=== PATIENT | female | born 2000 | race Caucasian/White ===

== ENCOUNTER → 2021-06-01 10:31 | Outpatient (BNVA) | payer MEDICAID, SELFPAY | PROVIDERS: Visit Provider Nurse Practitioner Family | DX: Z20.822 Contact with and (suspected) exposure to COVID-19 (principal) | CPT/HCPCS: 87635 ==

== ENCOUNTER 2024-09-18 02:19 | Emergency (ER) | payer SELFPAY ==
[2024-09-18 02:36] VITALS: BP 134/87; PULSE 98; RESP 18; TEMP 37.2; O2SAT 100; BMI 23.9
--- NOTE | 2024-09-18 02:52 | W.ED.BACK ---
HPI - Back Pain/Injury General: Chief Complaint: Back Pain/Injury Stated Complaint: Neck and Back Pain Time Seen by Provider: 09/18/24 02:38 History of Present Illness: Patient has had some stiffness in her neck pain in her head and neck and shoulders for the last few days. No focal motor deficits. No nuchal rigidity. No fevers. Related Data Previous Rx's Medication Instructions Recorded cyclobenzaprine 10 mg tablet 10 mg PO Q8H PRN muscle spasm #20 09/18/24 tabs dexamethasone 6 mg tablet 6 mg PO DAILY 5 days #5 tabs 09/18/24 diclofenac sodium 50 mg 50 mg PO BID PRN pain #14 tabs 09/18/24 tablet,delayed release Allergies Allergy/AdvReac Type Severity Reaction Status Date / Time No Known Allergies Allergy Verified 06/01/21 08:15 Review of Systems Narrative: Constitutional symptoms: Negative except as documented in HPI. Skin symptoms: Negative except as documented in HPI. Eye symptoms: Negative except as documented in HPI. ENMT symptoms: Negative except as documented in HPI. Respiratory symptoms: Negative except as documented in HPI. Cardiovascular symptoms: Negative except as documented in HPI. Gastrointestinal symptoms: Negative except as documented in HPI. Genitourinary symptoms: Negative except as documented in HPI. Musculoskeletal symptoms: Negative except as documented in HPI. Neurologic symptoms: Negative except as documented in HPI. Psychiatric symptoms: Negative except as documented in HPI. Endocrine symptoms: Negative except as documented in HPI. [facility] ED PFSH: Social History (Updated 06/01/21 @ 08:15 by Lynn Thomas NP) Smoking and tobacco/nicotine status: never used tobacco/nicotine Alcohol intake: never Female Reproductive History: Date of last menstrual period: 09/11/24 Physical Exam Narrative: EXAM NARRATIVE: General: Alert, no acute distress. Skin: warm and dry Head: Normocephalic Neck: Trachea midline, some mild paraspinal muscle tenderness in the neck and base of her skull. No bony tenderness. No nuchal rigidity. Eye: Extraocular movements are intact. Ears, nose, mouth and throat: Oral mucosa moist Respiratory: Respirations are non-labored Musculoskeletal: Normal ROM Neurological: Alert and oriented, No focal neurological deficit observed. Psychiatric: Cooperative, appropriate mood & affect. Course Vital Signs: Vital signs: Vital Signs Temperature 98.9 F 09/18/24 02:36 Pulse Rate 98 09/18/24 02:36 Respiratory Rate 18 09/18/24 02:36 Blood Pressure 134/87 09/18/24 02:36 Pulse Oximetry 100 09/18/24 02:36 Oxygen Delivery Me thod Room Air 09/18/24 02:36 MDM - Back Pain/Injury Medical Decision Making Assessment and plan: Neck pain ?Toradol, Decadron and Norflex in the emergency room - Discharged home - Discussed plan with patient. Answered any questions. - Evaluation and treatment of this problem were appropriate in the emergency setting. No radiology studies performed this visit Discharge Plan Discharge Patient Disposition: Home Clinical Impression: Acute neck pain Condition: Stable Prescriptions: New cyclobenzaprine 10 mg tablet 10 mg PO Q8H PRN (Reason: muscle spasm) Qty: 20 0RF dexamethasone 6 mg tablet 6 mg PO DAILY 5 Days Qty: 5 0RF diclofenac sodium 50 mg tablet,delayed release (DR/EC) 50 mg PO BID PRN (Reason: pain) Qty: 14 0RF Discharge Orders: Discharge ED (Routine); Ordered 09/18/24 Ordered By: Halie Killian Discharge Diet: Usual diet Discharge Activity: Increase activity as tolerated Patient Instructions: Opioid Safety, Pain Management Activity Restrictions/Additional Instructions: Thank you for choosing [facility] for your healthcare needs today. Please realize this is an emergency room and that we are providing you with a medical screening exam and this may not be complete and all inclusive of all the testing and or work up that you may need to determine your ailment or severity of your illness. You have been screened and evaluated and felt safe for discharge. Health conditions do change or evolve sometimes and as such it is important that you follow up with your Primary Doctor to be re checked, 3-5 days is a general good time frame for follow up. 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
[2024-09-18] MEDS: dexamethasone 10 mg/mL INJ IM (02:57)
[2024-09-18] MEDS: orphenadrine 30 mg/mL Inj 2 mL 60 MG IM (02:59)
[2024-09-18] MEDS: ketorolac 60 mg/2 mL INJ IM (03:04)
[2024-09-18 03:34] VITALS: BP 120/84; PULSE 99; O2SAT 99
== END 2024-09-18 03:30 | disposition home or self-care (01) ==
PROVIDERS: Emergency Provider Emergency Medicine
DX: M54.2 Cervicalgia (principal)
CPT/HCPCS: 96372; 99284; J1100; J1885; J2360

== ENCOUNTER 2024-09-23 17:57 | Emergency (ER) | payer SELFPAY ==
[2024-09-23 17:59] VITALS: BP 128/81; PULSE 103; TEMP 36.5; O2SAT 96; BMI 23.9
--- NOTE | 2024-09-23 18:32 | CTR_ITS ---
PROCEDURE INFORMATION: Exam: CT Neck With Contrast Exam date and time: 09/23/2024 6:55 PM Age: 24 years old Clinical indication: Neck pain; Additional info: Severe left neck pain and swelling TECHNIQUE: Imaging protocol: Computed tomography of the neck with contrast. Radiation optimization: All CT scans at this facility use at least one of these dose optimization techniques: automated exposure control; mA and/or kV adjustment per patient size (includes targeted exams where dose is matched to clinical indication); or iterative reconstruction. Contrast material: OMNIPAQUE 350; Contrast volume: 100 ml; Contrast route: INTRAVENOUS (IV); COMPARISON: No relevant prior studies available. RADIATION DOSE METRICS: Total DLP (mGy-cm): 259.12 FINDINGS: Paranasal sinuses: Mucous retention cyst in the right maxillary sinus. No air-fluid levels. Salivary glands: Normal. Glands are normal in size. Pharynx: Unremarkable. No significant tonsillar enlargement. Prevertebral and retropharyngeal spaces: Unremarkable. Larynx: Unremarkable. Epiglottis is normal. Thyroid: Normal. No enlarged or calcified nodules. Trachea: Visualized trachea is unremarkable. Lungs: Unremarkable as visualized. Lymph nodes: Unremarkable. No lymphadenopathy. Bones/joints: Unremarkable. No acute fracture. Soft tissues: Unremarkable. No significant soft tissue swelling. CT/CT neck w con* [id number] IMPRESSION: No acute findings.
--- NOTE | 2024-09-23 18:33 | ED_ITS ---
HPI - Back Pain/Injury 2 General: Chief Complaint: Back Pain/Injury Stated Complaint: upper back pain and neck Time Seen by Provider: 09/23/24 18:09 Source: patient Mode of arrival: ambulatory Limitations: no limitations History of Present Illness: Patient is a 24-year-old female who presents the emergency department complaining of worsening left neck pain going on 2 weeks now. Patient states was seen here on 09/18. I did review this note, she had unremarkable physical exam other than some reproducible left paracervical tenderness to palpation, was treated with Norflex, Decadron, and Toradol here in the emergency department and sent home with prescriptions. Patient states she only gets relief minimally from the muscle relaxer, but today it is the worst it has ever been. Currently rating it an 8/10, worse with movement but she can also feel it at rest. Other than the worsening of pain, she has no new symptoms to report. This includes no trouble swallowing, painful swallowing, fevers, recent illness, spinous process tenderness, or other symptoms. She does note that it radiates towards her left jaw and to left shoulder. Denies any recent trauma. 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 Afebrile at this time, vitals unremarkable. MD elicited complaint: other (Left neck pain) Onset (ago): week(s) Timing: constant and progressively worsening Severity: severe Pain scale (0-10): 8 Similar Symptoms Previously: Yes Quality: other (Pressure/spasm) Associated symptoms: Deny abdominal pain, chills, fever(s), nausea or vomiting Related Data Previous Rx's Medication Instructions Recorded cyclobenzaprine 10 mg tablet 10 mg PO Q8H PRN muscle spasm #20 09/18/24 tabs diclofenac sodium 50 mg 50 mg PO BID PRN pain #14 tabs 09/18/24 tablet,delayed release Allergies Allergy/AdvReac Type Severity Reaction Status Date / Time No Known Allergies Allergy Verified 09/23/24 18:04 Review of Systems 2 General: Reports: 10 or more systems reviewed and unremarkable except in HPI and below Const: Denies: fever(s) or chills Card: Denies: chest pain Resp: Denies: dyspnea or productive cough GI: Denies: abdominal pain, nausea, vomiting or diarrhea : Denies: flank pain Musc: Reports: neck pain and back pain (Upper left/posterior shoulder region); Denies: extremity pain, extremity swelling, joint pain, joint swelling, joint redness, joint warmth, limited range of motion or muscle weakness Skin/Breast: Denies: rash Neuro: Denies: headache(s), numbness in extremities or weakness in extremities PFSH ED 2 PFSH: Social History Smoking and tobacco/nicotine status: never used tobacco/nicotine Alcohol intake: never Physical Exam 2 Const: COMMON NORMALS: no acute distress, patient oriented x3, no limitations, healthy appearing, alert and well nourished HENMT: COMMON NORMALS: normocephalic, atraumatic, moist oral mucous membranes and oropharynx normal HEAD & SCALP: normocephalic and atraumatic Neck/C-Spine: COMMON NORMALS: full ROM, no lymphadenopathy, supple, no meningeal signs and Thyroid normal GENERAL: Yes normal visual inspection T HYROID: Thyroid normal OTHER: No significant reproducible tenderness to palpation to the left paracervical region, no obvious swelling of this area. No cervical spinous process tenderness Resp: COMMON NORMALS: normal respiratory effort, No use of accessory muscles and clear to auscultation bilaterally AUSCULTATION: clear to auscultation bilaterally Cardio: COMMON NORMALS: regular rate and regular rhythm RATE: regular rate RHYTHM: regular rhythm Back/Pelvis: COMMON NORMALS: no thoracic nor lumbar tenderness and thoraco- lumbar ROM normal Extremity: COMMON NORMALS: normal to inspection, full ROM, capillary refill normal, no joint enlargement and no clubbing, cyanosis or edema NARRATIVE EXTREMITY EXAM: No reproducible pain with range of motion of the left upper extremity Neuro: COMMON NORMALS: patient oriented x3, moves all extremities, no focal motor deficits and no sensory deficits noted SENSORIUM/ORIENTATION: Yes alert MENINGEAL SIGNS: Yes no meningeal signs Skin: COMMON NORMALS: no rashes or lesions noted GENERAL SKIN EXAM: no rashes or lesions noted Course 2 Vital Signs: Vital signs: Vital Signs Temperature 97.7 F 09/23/24 17:59 Pulse Rate 103 H 09/23/24 17:59 Blood Pressure 128/81 09/23/24 17:59 Pulse Oximetry 96 09/23/24 17:59 Oxygen Delivery Me thod Room Air 09/23/24 17:59 MDM - Back Pain/Injury Medical Decision Making Patient presented here for the second time in the past week for her left lateral neck pain. She has no new symptoms to report, just states that the pain was much more severe today. Denies any known recent illness. States that the muscle relaxer helped somewhat, but this has become less effective. Physical exam ultimately unremarkable, I could not really reproduce the pain on palpation she did have full range of motion at the neck. No spinous process tenderness I have low suspicion for meningitis. There were no palpable lymph nodes. Her labs did show slightly elevated white count, could be viral in nature. Rest of her labs unremarkable. CT of the neck did not demonstrate any acute findings. This favors a viral myositis of the left neck, encouraged her to continue treating at home conservatively and will refer to orthopedics for any further evaluation. Return precautions given, patient comfortable discharge over this time after being given dose of [place]. Labs 09/23/24 18:[address] 09/23/24 18:32 IMPRESSION: No acute findings. Laboratory Results WBC 15.78 10^3/uL (3.29-11.43) H 09/23/24 18:42 RBC 4.15 10^6/uL (3.85-5.65) 09/23/24 18:42 Hgb 12.00 g/dL (11.27-16.99) 09/23/24 18:42 Hct 36.7 % (36-47) 09/23/24 18:42 MCV 88.4 fl (85-98) 09/23/24 18:42 MCH 28.9 pg (27-33) 09/23/24 18:42 MCHC 32.7 g/dL (30-55) 09/23/24 18:42 RDW 12.4 % (12.1-15.1) 09/23/24 18:42 Plt Count 387 10^3/cmm (157-399) 09/23/24 18:42 MPV 9.4 fL (7.4-10.4) 09/23/24 18:42 Neut % (Auto) 67.5 % 09/23/24 18:42 Lymph % (Auto) 24.8 % 09/23/24 18:42 [place] % (Auto) 7.1 % 09/23/24 18:42 Eos % (Auto) 0.1 % 09/23/24 18:42 Baso % (Auto) 0.1 % 09/23/24 18:42 Neut # (Auto) 10.64 10^3/uL (1.8-7.7) H 09/23/24 18:42 Lymph # (Auto) 3.9 10^3/uL (0.8-4.8) 09/23/24 18:42 [place] # (Auto) 1.1 10^3/uL (0.2-0.9) H 09/23/24 18:42 Eos # (Auto) 0.0 10^3/uL (0.0-0.8) 09/23/24 18:42 Baso # (Auto) 0.0 10^3/uL (0.0-0.1) 09/23/24 18:42 Nucleated RBC % (auto) 0 % 09/23/24 18:42 Nucleated RBCs # 0.0 /100WBC 09/23/24 18:42 ESR 5 mm/hr (0-15) 09/23/24 18:42 C-Reactive Protein 3.0 mg/L (0.0-4.9) 09/23/24 18:42 All radiology interpretation(s) finalized by discharge Discharge Plan Discharge Patient Disposition: Home Clinical Impression: Cervical strain Qualifiers: Encounter type: subsequent encounter Qualified Code(s): S16.1XXD - Strain of muscle, fascia and tendon at neck level, subsequent encounter Condition: Stable Prescriptions: No Action cyclobenzaprine 10 mg tablet 10 mg PO Q8H PRN (Reason: muscle spasm) Qty: 20 0RF diclofenac sodium 50 mg tablet,delayed release (DR/EC) 50 mg PO BID PRN (Reason: pain) Qty: 14 0RF Discharge Orders: Discharge ED (Routine); Ordered 09/23/24 Ordered By: Tariq Ortiz Patient Instructions: Cervical Strain (ED) Activity Restrictions/Additional Instructions: Follow-up with Ortho/spine. Continue medications as prescribed. Heat as we discussed. Return with any new or worsening. 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
[2024-09-23 18:48] LABS: Basophils % 0.1 %; Eosinophils % 0.1 %; Hematocrit 36.7 % (36-47); Lymphocytes # 3.9 10^3/uL (0.8-4.8); Lymphocytes % 24.8 %; Mean Corpuscular HGB Conc 32.7 g/dL (30-55); Mean Corpuscular Hemoglobin 28.9 pg (27-33); Mean Corpuscular Volume 88.4 fl (85-98); Mean Platelet Volume 9.4 fL (7.4-10.4); Monocytes # 1.1 10^3/uL (0.2-0.9); Monocytes % 7.1 %; Neutrophils # 10.64 10^3/uL (1.8-7.7); Neutrophils % 67.5 %; Nucleated Red Blood Cells % 0 %; Platelet Count 387 10^3/cmm (157-399); Red Blood Count 4.15 10^6/uL (3.85-5.65); Red Cell Distribution Width 12.4 % (12.1-15.1); White Blood Count 15.78 10^3/uL (3.29-11.43)
[2024-09-23 18:51] LABS: Erythrocyte Sedimentation Rate 5 mm/hr (0-15)
[2024-09-23] MEDS: iohexol 350 mg/mL 500 mL Btl (per mL) IV (19:00)
[2024-09-23 20:55] VITALS: BP 119/79; PULSE 85; O2SAT 99
--- NOTE | 2024-09-24 07:26 | DCPLANNER ---
Message sent to ortho for follow up on cervical strain/ acute neck pain
== END 2024-09-23 20:55 | disposition home or self-care (01) ==
PROVIDERS: Emergency Provider Physician Assistant
DX: S16.1XXD Strain of muscle, fascia and tendon at neck level, subsequent encounter (principal); X58.XXXD Exposure to other specified factors, subsequent encounter
CPT/HCPCS: 70491; 85025; 85651; 86140; 99285

== ENCOUNTER 2025-09-09 20:46 | Emergency (ER) | payer BC, SELFPAY ==
[2025-09-09 20:54] VITALS: BP 131/89; PULSE 112; RESP 18; TEMP 36.9; O2SAT 98; BMI 24.7
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
--- OUTSIDE RECORDS SUMMARY | 2025-09-09 20:55 | XMS_ITS | Data Portability ---
Author Organization [place] - [facility], [facility] - [place] Address [address] [place] [address] Assessment No assessment recorded. Plan of Treatment Reminders Order Date Submit Date Provider Last Modified By Organization Details Last Modified Time Details Appointments Acute 20 2024 11:40A M RICCI BAILEY NP Not available Not available Not available Lab unlisted lab - rheumatoi d factor IgG/IgM/I gA subtypes 2024 025 [facility], [address] [place], [address], 01/03/2025 16:55:14 unlisted lab - anti-nucl ear antibody (IMELDA), IgG by ifa 2024 025 [facility], [address] [place], [address], 01/03/2025 16:55:12 Referral None recorded. Procedures None recorded. Surgeries None recorded. Imaging None recorded. Medication Orders ketorolac 60 mg/2 mL intramusc ular solution 2024 025 [id number] Not available 09/02/2025 15:58:41 dexametha sone sodium phosphate 10 mg/mL injection solution 2024 025 [email or web address] Not available 09/02/2025 15:57:50 ketorolac 60 mg/2 mL intramusc ular solution 2024 025 [id number] [facility], [address] [place], [place], [id number], 09/02/2025 15:58:41 dexametha sone sodium phosphate 10 mg/mL injection solution 2024 025 [id number] [facility], [address] [place] [address], [phone], 09/02/2025 15:57:50 ketorolac 60 mg/2 mL intramusc ular solution 2024 025 [email or web address] [facility], [address] [place] [address], [id number], 09/02/2025 15:58:41 dexametha sone sodium phosphate 10 mg/mL injection solution [address], [address] [place] [address], [id number], 09/02/2025 15:57:50 Patient TargetsNo targets recorded. Patient InstructionsNo instructions recorded. Reason for Referral None Reported. Results Created Date Observation Date Name Description Value Unit Range Abnormal Flag Note LastModifiedBy Organization Detail LastModifiedTime 01/02/2001/03/2025 ANTI- NUCLE AR ANTIB MARY ALICE (IMELDA) , IGG BY IFA IMELDA screen, ifa NOT DETECT ED not detect ed IMELDA Scree n Refer ence Range 1:80 IMELDA IFA is a first line scree n for detec ting the prese nce of up to 150 autoa ntibo dies in vario us autoi mmune disea ses. A posit gallo IMELDA IFA resul t is sugge stive of autoi mmune disea se and refle xes to marlena thomas. Consi donnie addit ional labor atory testi ng if clini delfino indic ated. Not Available [facility] [address], [place], [address], 01/03/2025 16:55:12 01/02/20 25 01/03/2025 RHEUM ATOID FACTO R IGG/I GM/IG A SUBTY PES rheumatoid factor, IgM NEGATI VE negati ve This test was devel oped and its perfo rmanc e surinder cteri stics are deter mined by [facility]. The follo wing resul ts were obtai toma with the Inova QUANT A Lite RF IgG, IgA, and IgM INOCENCIA . RF immun oglob ulin value s obtai toma with diffe rent manuf actur er's assay metho ds may not be used inter [facility] . The magni tude of the repor loulou immun oglob ulin level s canno t be corre lated to an endpo int titer . Not Available [facility] [address] [place], [address], 01/03/2025 16:55:14 01/02/20 25 01/03/2025 RHEUM ATOID FACTO R IGG/I GM/IG A SUBTY PES rheumatoid factor, IgG NEGATI VE negati ve This test was devel oped and its perfo rmanc e surinder cteri stics are deter mined by [facility]. [facility] were obtai toma with the Inova QUANT A Lite RF IgG, IgA, and IgM INOCENCIA . RF immun oglob ulin value s obtai otma with diffe rent manuf actur er's assay metho ds may not be used inter [facility] . The magni tude of the repor loulou immun oglob ulin level s canno t be corre lated to an endpo int titer . Not Available [facility] [address] [place], [address], 01/03/2025 16:55:14 01/02/20 25 01/03/2025 RHEUM ATOID FACTO R IGG/I GM/IG A SUBTY PES rheumatoid factor, IgA NEGATI VE negati ve This test was devel oped and its perfo rmanc e surinder cteri stics are deter mined by [facility]. The follo wing resul ts were obtai toma with the Inova QUANT A Lite RF IgG, IgA, and IgM INOCENCIA . RF immun oglob ulin value s obtai toma with elmo allen's assay metho ds may not be used inter [facility] . The magni tude of the repor loulou immun oglob ulin level s canno t be corre lated to an endpo int titer . Not Available [facility] [address] [place], [address], 01/03/2025 16:55:14 11/07/19 25 11/05/2024 XR, cervi dao spine No observ ation record ed. [address], [address], 11/07/2024 17:08:05 11/07/19 25 11/05/2024 XR, thora cic spine , 3 view No observ ation record ed. [address], [address], 11/07/2024 17:08:26 11/14/19 25 11/13/2024 MRI, brain , w/o contr ast No observ ation record ed. [address] ([address]) [address] [place], [address], 11/20/2024 10:29:38 Result Notes None recorded. Problems Name Problem SNOMED Code Status Onset Date Resolution Date Notes Provider Name and Address Organization Details Recorded Time Body mass index 20-24 - normal [id number] Active 024 RICCI BAILEY NP [address] [place] [address], [phone] , [place] [facility] 09/05/2024 13:18:21 Problem Notes None recorded. Procedures Surgical History Date Name Laterality Status Provider Name and Address Organization Details Recorded Time 03/08/20 21 venipuncture completed Kiley Kyle [facility] 03/08/2021 17:32:23 extraction of wisdom tooth completed Brigette Adler [facility] 09/05/2024 11:07:12 Imaging Results None recorded. Procedure Notes None recorded. Medical Equipment None Reported. Allergies No known drug allergies Medications Name Sig Start Date Stop Date Status Note LastModified by Organization Details LastModified Time fluoxetin e 40 mg capsule TAKE 1 CAPSULE BY MOUTH EVERY DAY active Not Available Not Available No t Available cyclobenz aprine 10 mg tablet TAKE 1 TABLET BY MOUTH THREE TIMES DAILY NEEDED active Not Available Not Available No t Available gabapenti n 600 mg tablet TAKE 1 TABLET BY MOUTH EVERY MORNING AND 2 TABLETS AT BEDTIME 09/02 completed Not Available Not Available Not Available hydrocodo ne 5 mg-acetam inophen 325 mg tablet TAKE 1 TABLET BY MOUTH EVERY 4 HOURS NEEDED FOR PAIN 09/02 completed Not Available Not Available Not Available dexametha sone 6 mg tablet TAKE 1 TABLET BY MOUTH ONCE DAILY FOR 5 DAYS 11/05 completed Not Available Not Available Not Available sulfameth oxazole 800 mg-trimet hoprim 160 mg tablet TAKE 1 TABLET BY MOUTH EVERY 12 HOURS FOR 10 DAYS 09/05 completed Not Available Not Available Not Available ketorolac 30 mg/mL (1 mL) injection solution Inject 2 mL by intramus cular route. 09/02 completed Not Available Not Available Not Available butalbita l-acetami nophen-ca ffeine 50 mg-325 mg-40 mg tablet TAKE 1 TABLET BY MOUTH EVERY 4 HOURS NEEDED 09/02 completed Not Available Not Available Not Available Depo-Medr ol 80 mg/mL suspensio n for injection Take 80 mg by injectio n route. 09/02 completed Not Available Not Available Not Available carbamaze pine ER 400 mg tablet,ex tended release,1 2 hr TAKE 1 TABLET BY MOUTH EVERY 12 HOURS 09/02 completed Not Available Not Available Not Available carbamaze pine 200 mg tablet TAKE 1 TABLET BY MOUTH EVERY 12 HOURS 09/02 completed Not Available Not Available Not Available baclofen 10 mg tablet TAKE 1 TABLET BY MOUTH THREE TIMES DAILY NEEDED 09/02 completed Not Available Not Available Not Available hydrocodo ne 7.5 mg-acetam inophen 325 mg tablet TK 1 T PO Q 6 H PRN P 05/20 completed Not Available Not Available Not Available pantopraz ole 40 mg tablet,de layed release TAKE 1 TABLET BY MOUTH EVERY DAY 11/05 completed Not Available Not Available Not Available fluoxetin e 10 mg capsule TAKE 1 CAPSULE BY MOUTH EVERY DAY 09/02 completed Not Available Not Available Not Available gabapenti n 300 mg capsule TAKE 1 CAPSULE BY MOUTH THREE TIMES DAILY 09/02 completed Not Available Not Available Not Available diclofena c sodium 75 mg tablet,de layed release TAKE 1 TABLET BY MOUTH TWICE DAILY 09/02 completed Not Available Not Available Not Available diclofena c sodium 50 mg tablet,de layed release TAKE 1 TABLET BY MOUTH TWICE DAILY NEEDED FOR PAIN 11/05 completed Not Available Not Available Not Available dexametha sone sodium phosphate 4 mg/mL injection solution Inject 4 mg by intramus cular route. 09/02 completed Not Available Not Available Not Available methylpre dnisolone 4 mg tablets in a dose pack TAKE BY MOUTH DIRECTED ON INSIDE OF PACKAGE 05/20 completed Not Available Not Available Not Available ketorolac 60 mg/2 mL intramusc ular solution Inject 60 mg by intramus cular route. 09/02 completed Not Available Not Available Not Available dexametha sone sodium phosphate 10 mg/mL injection solution Take 1 mL by injectio n route. 09/02 completed Not Available Not Available Not Available fluoxetin e 20 mg capsule TAKE 1 CAPSULE BY MOUTH EVERY DAY 09/02 completed Not Available Not Available Not Available amoxicill in 875 mg-potass ium clavulana te 125 mg tablet TAKE 1 TABLET BY MOUTH EVERY 12 HOURS WITH MEALS FOR 10 DAYS 09/05 completed Not Available Not Available Not Available hydroxyzi ne pamoate 25 mg capsule Take 1 capsule every day by oral route at bedtime. 09/02 completed Not Available Not Available Not Available Lexapro 10 mg tablet Take 1 tablet every day by oral route. 11/05 completed gets through [employer] Not Available Not Available Not Available cyclobenz aprine 5 mg tablet TAKE 1 TABLET BY MOUTH THREE TIMES DAILY NEEDED FOR MUSCLE SPASM FOR UP TO 7 DAYS 05/20 completed Not Available Not Available Not Available Tri-Sprin morales (28) 0.18 mg(7)/0.2 15 mg(7)/0.2 5 mg(7)-0.0 35 mg tablet TAKE 1 TABLET BY MOUTH EVERY DAY 09/05 completed Not Available Not Available Not Available Lexapro 5 mg tablet Take 1 tablet every day by oral route. 10/22 completed Not Available Not Available Not Available topiramat e 50 mg tablet TAKE 1 TABLET BY MOUTH TWICE DAILY 09/02 completed Not Available Not Available Not Available nitrofura ntoin monohydra te/macroc rystals 100 mg capsule Take 1 capsule every 12 hours by oral route for 7 days. 03/22 completed Not Available Not Available Not Available carbamaze pine ER 300 mg capsule,e xtended release [id number] r Take 1 capsule every 12 hours by oral route. 09/02 completed Not Available Not Available Not Available chlorhexi dine gluconate 0.12 % mouthwash SWISH AND SPIT 1 CAPFUL FOR 30 SECONDS BID DO NOT EAT OR DRINK FOR 1 HOUR FOLLOWIN G 05/20 completed Not Available Not Available Not Available active Not Available Not Avai lable Not Available Azo Cranberry 04/16 completed Not Available Not Available Not Available Vitals Date Recorded Body height Body mass index (BMI) Body weight Body temperature Heart rate Oxygen saturation Respiratory rate Systolic And Diastolic Provider Name and Address Organization Details Last Updated DateTime 5 160.02 cm 24.8 kg/m2 33518.9 3 g 97.5 [degF] 86 /min 99 % 18 /min 107/67 mm[Hg] Brigette Adler [facility] 5 12:10:17 Social History Question Answer Notes LastModified by Organization Details LastModified Time Tobacco Smoking Status Never Smoker Violet Fiore [facility] 06/19/2019 17:19:40 Do You Have An Advance Directive? No Information not available 09/05/2024 Animal Exposure? Yes [email or web address] Informat ion not available 06/19/2019 Do You Wear A Helmet When Biking? No Information not available 09/05/2024 Are You Blind Or Do You Have Difficulty Seeing? No Information not available 04/16/2021 Is Blood Transfusion Acceptable In An Emergency? Yes Information not available 09/05/2024 What Is Your Level Of Caffeine Consumption? Moderate Information not available 06/19/2019 How Much Tobacco Do You Chew? None [email or web address] Information not available 06/19/2019 Concerns About Meeting Basic Needs (food, Housing, Heat, Etc)? No [email or web address] Information not available 06/19/2019 In The 14 Days Before Symptom Onset, Have You Had Close Contact With A Laboratory-confi rmed COVID-19 While That Case Was Ill? No Information not available 04/16/2021 In The 14 Days Before Symptom Onset, Have You Had Close Contact With A Person Who Is Under Investigation For COVID-19 While That Person Was Ill? No Information not available 04/16/2021 Have You Been To An Area Known To Be High Risk For COVID-19? No Information not available 04/16/2021 Are You Deaf Or Do You Have Serious Difficulty Hearing? No Information not available 04/16/2021 What Type Of Diet Are You Following? REGULAR [email or web address] Information not available 06/19/2019 Does Family Ever Have Difficulty Making Ends Meet At The End Of The Month? No [email or web address] Information not available 06/19/2019 Which Illicit Or Recreational Drugs Have You Used? None Information not available 06/19/2019 Have You Processed Blood Or Body Fluids From An Ebola Virus Disease Patient Without Appropriate PPE? No Information not available 04/16/2021 What Is The Highest Grade Or Level Of School You Have Completed Or The Highest Degree You Have Received? [id number] Information not available 09/05/2024 How Many Days Of Moderate To Strenuous Exercise, Like A Brisk Walk, Did You Do In The Last 7 Days? 0 Information not available 09/05/2024 Have There Been Any Changes To Your Family Or Social Situation? No [email or web address] Information not available 06/19/2019 What Is The Fluoride Status Of Your Home? Non-fluoridated [email or web address] Information not available 06/19/2019 Are There Any Guns Present In Your Home? Yes [email or web address] Information not available 06/19/2019 What Is Your Home Situation? Mother [email or web address] Information not available 06/19/2019 How Many Years Have You Used Illicit Or Recreational Drugs? 0 Information not available 03/22/2021 Do You Use Insect Repellent Routinely? Yes [email or web address] Information not available 06/19/2019 In The Past 6 Months Have You Fallen No Information not available 09/09/2025 Have You Ever Been Tested For Hepatitis C No Information not available 09/05/2024 Have You Had A Blood Transfusion Before 1991? No Information not available 09/05/2024 Have You Had Half-Way Dialysis? No Information not available 09/05/2024 Have You Ever Used Injectable Drugs, Even Once? No Information not available 09/05/2024 Do You Have Tattoos Or Body Piercings? Yes Information not available 09/05/2024 Have You Had Close Contact With An Individual With Hepatitis C? No Information not available 09/05/2024 Have You Ever Had Sex For Drugs Or Money? No Information not available 09/05/2024 Have You Ever Had Unprotected Sex? Yes Information not available 09/05/2024 Have You Been Incarcerated For Longer Than 6 Months? No Information not available 09/05/2024 Have You Tested Positive For HIV? No Information not available 09/05/2024 Do You Have A History Of Fist Fighting Or Combat Experience? No Information not available 09/05/2024 Medication List Reconciled Yes [email or web address] Information not available 06/15/2020 Most Recent Dental Visit 08/28/2025 Information not available 09/09/2025 Sexual Orientation Straight Or Heterosexual [email or web address] Information not available 06/19/2019 Gender Identity Female [email or web address] Informati on not available 06/19/2019 Eye Exam 03/05/2025 Information not available 09/09/2025 Do You Feel Safe Yes [email or web address] Informat ion not available 06/19/2019 Do You Feel Physically And Emotionally Safe Where You Currently Live? Yes [email or web address] Information not available 06/19/2019 Mosquito Repellent Used Routinely Yes [email or web address] Information not available 06/19/2019 What Was The Date Of Your Most Recent Tobacco Screening? 09/09/2025 Information not available 09/09/2025 Family Has Moved Frequently/lived With Others Due To Finances Within The Last Year? No [email or web address] Information not available 06/19/2019 How Many Children Do You Have? 0 Information not available 09/05/2024 Are There Any Occupational Health Risks Where You Work? Yes Information not available 09/05/2024 What Is Your Parents' Marital Status? [email or web address] Information not available 06/19/2019 Pool Exposure No [email or web address] Information not available 06/19/2019 What Is Your Relationship Status? Single Information not available 09/05/2024 Do You Use Your Seat Belt Or Car Seat Routinely? Yes Information not available 06/19/2019 Are You Sexually Active? Yes Information not available 09/05/2024 Do You Have Any Siblings? 3 Information not available 06/19/2019 Do You Have Smoke And Carbon Monoxide Detectors In Your Home? Yes Information not available 06/19/2019 Are You Passively Exposed To Smoke? Yes [email or web address] Information not available 06/19/2019 How Much Tobacco Do You Smoke? No [email or web address] Information not available 06/19/2019 What Types Of Sporting Activities Do You Participate In? 0 Information not available 09/05/2024 Do You Use Sunscreen Routinely? Yes [email or web address] Information not available 06/19/2019 Do You Have Difficulty Walking Or Climbing Stairs? No Information not available 04/16/2021 Year In School HS Grad [email or web address] Informatio n not available 11/12/2021 Do You Want To Talk About Contraception Or Prevention During Your Visit Today? No - I Am Hoping To Become In The Near Future Pt Is Currently Information not available 09/09/2025 Do You Have Any Future Plans To Get ? Yes, I Want To Become Information not available 09/09/2025 Sex: Female Functional Status Question Answer Note LastModified by [employer] Details LastModified Time Do you or have you ever used smokeless tobacco? Never used smokeless tobacco [email or web address] Information not available 06/19/2019 Are you currently employed? Yes Information not available 09/05/2024 Do you have transportation difficulties? No Information not available 09/05/2024 Are you able to care for yourself independently? Yes [email or web address] Information not available 12/13/2021 Do you have difficulty dressing, bathing, grooming, or toileting? No Information not available 04/16/2021 Do you or have you ever used e-cigarettes or vape? Never used electronic cigarettes [email or web address] Information not available 06/19/2019 What is your exercise level? Occasional Information not available 09/05/2024 Do you use any illicit or recreational drugs? No Information not available 04/16/2021 Do you or have you ever used any other forms of tobacco or nicotine? No Information not available 04/16/2021 What is your level of alcohol consumption? None [email or web address] Information not available 06/19/2019 Are you able to walk independently without assistance or assistive devices? [email or web address] Information not available 11/12/2021 Do you have difficulty doing errands alone? 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 [id number] Information not available 09/05/2024 Do you have difficulty concentrating, remembering or making decisions? No Information no t available 04/16/2021 Are you or have you been involved with bullying? No [email or web address] Information not available 06/19/2019 Family History Relationship Description Onset Age of this Age Resolved Age Notes LastModified by Organization Details LastModified Time Father No current problems or disability [email or web address] Not available 06/19 17:19:31 Mother No current problems or disability [email or web address] Not available 06/19 17:19:31 Notes:No changes 09-09-25 rc Luis Medical History Condition Response Other N Gout N Blood Diseases N Kidney Stones N Hyperthyroidism N Blood Transfusion N COPD N Depression N Incontinence N Edema N Endocrine Disorders N Anxiety Disorder N Muscle, Joint, or Bone Problems N Obesity N Vision or Eye Problems Y Arthritis N Auditory Hallucinations N Infertility N Cancer N Stroke N Varicosities N Fibromyalgia N Headaches N Kidney Disease N Abnormal Bleeding N Reproductive System Problems N Ear or Hearing Problems N Hospitalizations N Learning Disorder N Eating Disorder N Skin Problems N MRSA exposure N Constipation N Urinary Problems N Brain Injury N Visual Hallucinations N Tuberculosis N AIDS/HIV N Back Problems N Asthma N GERD/Reflux N Hepatitis N Pulmonary Embolism N Chronic Ear Infections N Chicken Pox N Autism Spectrum Disorder (ASD) N Thrombophilias N Thyroid Disease N Breast Cancer N Lung Disease N Hypothyroidism N Developmental or Behavioral Disorders N Defects or Inherited Disease N Breast Problem N Difficulty Swallowing N Anesthesia Complications N Deep Vein Thrombosis N Meniere's disease N Hearing Loss N Head Injury/Concussion N Congenital Anomalies N Abnormal Pap Smear N Endometriosis N Bladder or Kidney Problems N High Cholesterol N Liver Disease N Nervous System Disorder N Psychiatric/Mental Health Condition N Schizophrenia N Allergies/Hayfever N Parkinson's Disease N GI Problems N ADD/ADHD N Anemia N Colon Polyps N Heart Attack (ME) N Diabetes N Ovarian Cancer N Bedwetting N Seizures/Epilepsy N Amnesia N Congestive Heart Failure (CHF) N Eczema N Dementia N Diverticulitis N Abuse/Domestic Violence N Cardiovascular N Tourette Syndrome N Hypertension N Pre-Eclampsia N Osteoporosis N Gynecological History Statement/Question Response Flow Moderate Date of LMP 07/21/2025 Last mammogram completed & confirmed wit h report in chart STIs/STDs N HPV Vaccine N Age at Menarche 15 Current Control Method None Last colonoscopy completed & confirmed w ith report in chart Most Recent Bone Density Sexually Active? N Date of Last Pap Smear Sexual Problems? N Obstetrics History GPAL:G 1 P 0 0 0 0 Type Value Multiple Births 0 Full Term 0 Induced 0 Spontaneous 0 Premature 0 Living 0 Ectopics 0 Total 1 Immunizations Vaccine Type Date Status Note Provider Nam e and Address Organization Details Recorded Time Meningococcal [id number] 9 completed Not Available [facility]2019 02:39:14 Hep B, adolescent or pediatric 1 completed Eli oliveros [facility] 06/20/2019 12:43:01 Hep B, adolescent or pediatric 2 completed Eli Wiseman null, [facility] 06/20/2019 12:43:10 Hep B, adolescent or pediatric 3 completed Eli Wiseman null, [facility] 06/20/2019 12:43:18 DTaP 2 completed Eli Wiseman null, [facility] 06/20/2019 12:43:37 DTaP 2 completed Eli Wiseman null, [facility] 06/20/2019 12:43:47 DTaP 2 completed Eli Wiseman null, [facility] 06/20/2019 12:43:57 DTaP 3 completed Eli Wiseman null, [facility] 06/20/2019 12:44:07 DTaP 7 completed Eli Wiseman null, [facility] 06/20/2019 12:44:17 DTaP 5 completed Eli Wiseman null, [facility] 06/20/2019 12:44:27 Hib, unspecified formulation 2 completed Eli Wiseman null, [facility] 06/20/2019 12:44:48 Hib, unspecified formulation 2 completed Eli Wiseman null, [facility] 06/20/2019 12:44:57 Hib, unspecified formulation 3 completed Eli Wiseman null, [facility] 06/20/2019 12:45:06 IPV 2 completed Eli Wiseman null, [facility] 06/20/2019 12:46:25 IPV 2 completed Eli Wiseman null, [facility] 06/20/2019 12:46:35 IPV 2 completed Eli Wiseman null, [facility] 06/20/2019 12:46:47 IPV 7 completed Eli Wiseman null, [facility] 06/20/2019 12:47:00 Pneumococcal conjugate PCV 13 2 completed Eli Wiseman [facility], [facility] 06/20/2019 12:47:15 Pneumococcal conjugate PCV 13 2 completed Eli Wiseman null, [facility] 06/20/2019 12:47:26 Pneumococcal conjugate PCV 13 2 completed Eli Wiseman null, [facility] 06/20/2019 12:47:37 Pneumococcal conjugate PCV 13 3 completed Eli Wiseman null, [facility] 06/20/2019 12:47:50 MMR 3 completed Eli Wiseman [facility], [facility] 06/20/2019 12:53:08 MMR 7 completed Eli Wiseman [facility], [facility] 06/20/2019 12:53:18 varicella 3 completed Eli Wiseman [facility] 06/20/2019 12:53:36 varicella 7 completed Eli Wiseman [facility] 06/20/2019 12:53:47 Hep A, pediatric, unspecified formulation 4 completed Eli Wiseman [facility], [facility] 06/20/2019 12:54:08 Hep A, pediatric, unspecified formulation 7 completed Eli Wiseman [facility], [facility] 06/20/2019 12:54:19 meningococcal ACWY, unspecified formulation 5 completed Eli Wiseman [facility], [facility] 06/20/2019 12:54:51 Hep B, unspecified formulation 2 completed Not Available [facility] 11:50:23 Tdap 5 completed Not Available [facility] 09/09/2025 11:50:23 COVID-19, mRNA, LNP-S, PF, 30 mcg/0.3 mL dose 1 completed Not Available [facility] 09/09/2025 11:50:23 Influenza, split virus, quadrivalent, preservative 1 completed Not Available [facility] 09/09/2025 11:50:23 COVID-19, mRNA, LNP-S, PF, 30 mcg/0.3 mL dose 1 completed Not Available [facility] 09/09/2025 11:50:23 influenza, intradermal, quadrivalent, preservative free 2 completed Not Available [facility] 09/09/2025 11:50:23 Past Encounters Encounter ID Performer Location Encounter Start Date Encounter Closed Date Diagnosis/Indication Diagnosis SNOMED-CT Code Diagnosis ICD10 Code Diagnosis IMO Codes Diagnosis Note [id number] Liz Bermeo MD [address] [address] 06/19/2019 17:12:14 06/20/2019 16:44:55 Irregular periods 83370642 N92.6 Active or passive immunization 859166385 Z23 Initial pr escription of oral contraception 868874527 Z30.011 Well child 083925209 Z00 .129 Dietary ma nagement surveillance 376102413 Z71.3 Exercises education, guidance, and counseling 565423412 Z71.82 Normal bod y mass index 73260079 Z68.52 [id number] Manpreet Xiong MD [address] [address] 04/14/2020 12:30:35 04/15/2020 10:00:50 Dysuria 84835828 R30.9 Acute urin veto tract infection 956531399 N39.0 [id number] Liz Bermeo MD [address] [address] 05/20/2020 09:59:16 05/21/2020 14:17:31 Contraception care management 447569067 Z30.9 Dietary ma nagement surveillance 267188487 Z71.3 Exercises education, guidance, and counseling 728028232 Z71.82 Body mass index 20-24 - normal 002703490 Z68.22 [id number] Tim Beltran DO [address] [address] 06/15/2020 11:18:24 06/15/2020 12:15:33 Dysuria 51190427 R30.9 Acute urin veto tract infection 684855379 N39.0 Patient presents with symptoms of UTI. Results of dipstick were positive for UTI. Advised to drink clear fluids, Tylenol for pain and take prescribed medication s as instructed . Patient encouraged to follow up within 1 week if not improving. 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 .8 [id number] Liz Bermoe MD [address] [address] 03/22/2021 10:26:37 03/22/2021 10:51:54 Amygdalolith 7476012 J35.8 patient will try warm salt water soaks for a week and if not better will refer to ENT [id number] Bailey Mascorro DO [facility] [address] [address] 04/06/2021 14:26:49 04/07/2021 10:15:49 Dysuria 11492274 R30.9 Acute urin veto tract infection 425447301 N39.0 [id number] Manpreet Xiong MD [address] [address] 04/16/2021 13:50:29 04/16/2021 14:39:58 Contraception care management 348746699 Z30.9 [id number] Manpreet Xiong MD [address], [facility] [place] [address] 11/12/2021 15:02:04 11/12/2021 15:56:13 Migraine 36670049 G43.909 Tension-type headache 39 7507612 G44.209 Dietary ma nagement surveillance 476459761 Z71.3 Exercises education, guidance, and counseling 979626191 Z71.82 Normal bod y mass index 57297063 Z68.52 [id number] JOHN MERCEDES NP [address] [address] 12/13/2021 17:19:04 12/13/2021 18:42:45 Dysuria 16232423 R30.9 Acute urin veto tract infection 603739204 N39.0 [id number] Margoth Andrews [address] [address] 09/05/2024 10:29:24 09/05/2024 13:22:38 Adult health examination 412246945 Z00.00 Fit for work 088096503 Z 78.9 Body mass index 20-24 - normal 927663692 Z68.24 [id number] Margoth Andrews [address] [address] 10/22/2024 15:15:02 10/23/2024 11:17:49 Burning epigastric pain 00470433 R10.13 Start Pantoprazo le 40 mg daily Anxiety disorder 4016604 06 F41.9 Body mass index 20-24 - normal 011375865 Z68.24 BMI 23.9 [id number] Margoth Andrews [address] [address] 11/05/2024 09:55:19 11/06/2024 11:54:30 Left trigeminal neuralgia 2475226587 8513659 G50.0 Thoracic back pain 43277 8004 M54.6 Neck pain 10628981 M54.2 Body mass index 20-24 - normal 492936968 Z68.23 BMI 23.6 Diet education 37124647 Z71.3 Exercises education, guidance, and counseling 884010800 Z71.89 [id number] Margoth Andrews [address] [address] 12/04/2024 09:28:23 12/05/2024 14:29:59 Neck pain 70799687 M54.2 [id number] Margoth Andrews, [address] [address] 01/01/2025 10:42:25 01/02/2025 09:37:48 Neck pain 17545277 M54.2 Left trige ben neuralgia 0806338013 5463942 G50.0 [id number] Margoth Andrews [address] [address] 06/16/2025 15:58:02 06/17/2025 10:57:42 Neck pain 85303494 M54.2 [id number] Margoth Andrews [address] [address] 06/16/2025 16:37:49 06/16/2025 17:56:52 Neck pain 23037460 M54.2 [id number] Luciusdebbie Demarco [address] [address] 09/09/2025 11:48:25 09/09/2025 13:59:34 Antepartum hemorrhage 52215654 O20.9 933021 Health Concerns Section Related Observation LastModified by Organization Detai ls LastModified Time None Recorded Concern Status LastModified by Organization Details LastModified Time None Recorded Advance Directives Directive N: Payers Insurance Date Sequence Insurance Name Policy Number Policy Pinto Covered Member ID Pinto Member ID Guarantor Name 09/09/2025 1 [facility] - [place] MARGOT Saldana [id number] Elsie Saldana 04/15/2025 1 *SELF PAY* Wen Saldana 09/09/2025 1 [facility] Elsie Saldana [id number] Elsie Saldana 10/23/2024 SLIDING FEE SCHEDULE - DISCOUNT Elsie Saldana 09/09/2025 THE RIGHT TIME INITIATIVE Elsie Saldana [id number] Elsie Saldana 10/23/2024 SLIDING FEE SCHEDULE - DISCOUNT Elsie Saldana 09/09/2025 1 [place] Elsie Saldana [id number] Elsie Saldana Notes Date Note Type Note Provider Name and Address Organization Details Recorded Time 09/09/2025 text/html CHIEF COMPLAINT: Light vaginal bleeding during early follow up. Elsie is a 25-year-old female who presents for follow up regarding early complicated by vaginal spotting. She reports spotting that began last night, initially dark brown and now bright red. She has used one pad over the past three hours and experiences mild low pelvic cramping. She denies dysuria or urinary burning but notes darker urine. Home test was positive; with last menstrual period on 07/21/2025 she is approximately 6-7 weeks and has an obstetric appointment scheduled for next Monday. Current medications include fluoxetine, cyclobenzaprine as needed (taken daily on two occasions, not yesterday), vitamins, and magnesium. She has discontinued other prior pain medications. Not Available Not Available Not Available OBGyn Episode No OBEpisode recorded.
--- OUTSIDE RECORDS SUMMARY | 2025-09-09 20:55 | XMS_ITS | Continuity of Care Document ---
Author Organization [facility] Address [address] [place] [address] Assessment No assessment recorded. Plan of Treatment Reminders Order Date Submit Date Provider Last Modified By Organization Details Last Modified Time Details Appointments Acute 20 2024 11:40A M RICCI BAILEY NP Not available Not available Not available Lab None recorded. Referral None recorded. Procedures None recorded. Surgeries None recorded. Imaging None recorded. Medication Orders ketorolac 60 mg/2 mL intramusc ular solution 2024 025 [id number] Not available 09/02/2025 15:58:41 dexametha sone sodium phosphate 10 mg/mL injection solution 2024 025 [email or web address] Not available 09/02/2025 15:57:50 Patient TargetsNo targets recorded. Patient InstructionsNo instructions recorded. Reason for Referral None Reported. Problems Name Problem SNOMED Code Status Onset Date Resolution Date Notes Provider Name and Address Organization Details Recorded Time Body mass index 20-24 - normal 766743575 Active 024 RICCI BAILEY NP [address], [address] , [facility] 09/05/2024 13:18:21 Problem Notes None recorded. Procedures Surgical History Date Name Laterality Status Provider Name and Address Organization Details Recorded Time 03/08/20 21 venipuncture completed Kiley Kyle [facility] 03/08/2021 17:32:23 extraction of wisdom tooth completed Brigette Adler [facility] 09/05/2024 11:07:12 Imaging Results None recorded. Procedure [...] by oral route. 11/05 completed gets through [facility] Not Available Not Available Not Available cyclobenz [...] pine ER 300 mg capsule,e xtended release [email or web address] r Take 1 capsule every 12 hours [...] Not Available Not Available Not Available Vitals None Recorded Social History Question Answer Notes LastModified by Organization Details LastModified Time Tobacco Smoking Status Never Smoker [facility] [place] [facility] 06/19/2019 17:19:40 Do You Have An Advance Directive? No Information not available 09/05/2024 Animal Exposure? Yes [email or web address] Informat ion not available 06/19/2019 Do You Wear A Helmet When Biking? No Information not available 09/05/2024 Are You Blind Or Do You Have Difficulty Seeing? No Information not available 04/16/2021 Is Blood Transfusion Acceptable In An Emergency? Yes Information not available 09/05/2024 What Is Your Level Of Caffeine Consumption? Moderate [email or web address] Information not available 06/19/2019 How Much Tobacco Do You Chew? None [email or web address] Information not available 06/19/2019 Concerns About Meeting Basic Needs (food, Housing, Heat, Etc)? No [email or web address] Information not available 06/19/2019 In The 14 [...] Type Of Diet Are You Following? REGULAR [email or web address] Information not available 06/19/2019 Does Family Ever Have Difficulty Making Ends Meet At The End Of The Month? No [email or web address] Information not available 06/19/2019 Which Illicit Or Recreational Drugs Have You Used? None [email or web address] Information not available 06/19/2019 Have You Processed Blood Or Body Fluids From An Ebola Virus Disease Patient Without Appropriate PPE? No Information not available 04/16/2021 What Is The Highest Grade Or Level Of School You Have Completed Or The Highest Degree You Have Received? [id number] Information not available 09/05/2024 How Many Days Of Moderate To Strenuous Exercise, Like A Brisk Walk, Did You Do In The Last 7 Days? 0 Information not available 09/05/2024 Have There Been Any Changes To Your Family Or Social Situation? No [email or web address] Information not available 06/19/2019 What Is The Fluoride Status Of Your Home? Non-fluoridated [email or web address] Information not available 06/19/2019 Are There Any Guns Present In Your Home? Yes [email or web address] Information not available 06/19/2019 What Is Your Home Situation? Mother [email or web address] Information not available 06/19/2019 How Many Years [...] Information not available 09/05/2024 Have You Had Jail Dialysis? No Information not available 09/05/2024 Have [...] not available 09/05/2024 Medication List Reconciled Yes [email or web address] Information not available 06/15/2020 Most Recent Dental Visit 08/28/2025 Information not available 09/09/2025 Sexual Orientation Straight Or Heterosexual Information not available 06/19/2019 Gender Identity Female Informati on not available 06/19/2019 Eye Exam 03/05/2025 Information not available 09/09/2025 Do You Feel Safe Yes [email or web address] Informat ion not available 06/19/2019 Do You Feel Physically And Emotionally Safe Where You Currently Live? Yes [email or web address] Information not available 06/19/2019 Mosquito Repellent Used Routinely Yes [email or web address] Information not available 06/19/2019 What Was The Date Of Your Most Recent Tobacco Screening? 09/09/2025 Information not available 09/09/2025 Family Has Moved Frequently/lived With Others Due To Finances Within The Last Year? No [email or web address] Information not available 06/19/2019 How Many Children Do You Have? 0 Information not available 09/05/2024 Are There Any Occupational Health Risks Where You Work? Yes Information not available 09/05/2024 What Is Your Parents' Marital Status? Information not available 06/19/2019 Pool Exposure No [email or web address] Information not available 06/19/2019 What Is Your Relationship Status? Single Information not available 09/05/2024 Do You Use Your Seat Belt Or Car Seat Routinely? Yes [email or web address] Information not available 06/19/2019 Are You Sexually Active? Yes Information not available 09/05/2024 Do You Have Any Siblings? 3 [email or web address] Information not available 06/19/2019 Do You Have Smoke And Carbon Monoxide Detectors In Your Home? Yes [email or web address] Information not available 06/19/2019 Are You Passively Exposed To Smoke? Yes [email or web address] Information not available 06/19/2019 How Much Tobacco Do You Smoke? No [email or web address] Information not available 06/19/2019 What Types Of Sporting Activities Do You Participate In? 0 Information not available 09/05/2024 Do You Use Sunscreen Routinely? Yes [email or web address] Information not available 06/19/2019 Do You Have Difficulty Walking Or Climbing Stairs? No Information not available 04/16/2021 Year In School HS Grad Informatio n not available 11/12/2021 Do You Want To Talk About Contraception Or Prevention During Your Visit Today? No - I Am Hoping To Become In The Near Future Pt Is Currently Information not available 09/09/2025 Do You Have Any Future Plans To Get ? Yes, I Want To Become Information not available 09/09/2025 Sex: Female Functional Status Question Answer Note LastModified by Organizat ion Details LastModified Time Do you or have you ever used smokeless tobacco? Never used smokeless tobacco [email or web address] Information not available 06/19/2019 Are you currently employed? Yes Information not available 09/05/2024 Do you have transportation difficulties? No Information not available 09/05/2024 Are you able to care for yourself independently? Yes [email or web address] Information not available 12/13/2021 Do you have difficulty dressing, bathing, grooming, or toileting? No Information not available 04/16/2021 Do you or have you ever used e-cigarettes or vape? Never used electronic cigarettes Information not available 06/19/2019 What is your exercise level? Occasional Information not available 09/05/2024 Do you use any illicit or recreational drugs? No Information not available 04/16/2021 Do you or have you ever used any other forms of tobacco or nicotine? No Information not available 04/16/2021 What is your level of alcohol consumption? None [email or web address] Information not available 06/19/2019 Are you able to walk independently without assistance or assistive devices? [email or web address] Information not available 11/12/2021 Do you have difficulty doing errands alone? 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 [id number] Information not available 09/05/2024 Do you have difficulty concentrating, remembering or making decisions? No Information no t available 04/16/2021 Are you or have you been involved with bullying? No Information not available 06/19/2019 Family History Relationship Description Onset Age of this Age Resolved Age Notes LastModified by Organization Details LastModified Time Father No current problems or disability [email or web address] Not available 06/19 17:19:31 Mother No current problems or disability [email or web address] Not available 06/19 17:19:31 Notes:No changes 09-09-25 bert Smith Medical History Condition Response Other N Gout N Kidney Stones N Blood Diseases N Hyperthyroidism N Blood Transfusion N Depression N COPD N Incontinence N Edema N Endocrine Disorders N Anxiety Disorder N Muscle, Joint, or Bone Problems N Obesity N Vision or Eye Problems Y Arthritis N Auditory Hallucinations N Infertility N Cancer N Varicosities N Stroke N Fibromyalgia N Headaches N Kidney Disease N Abnormal Bleeding N Reproductive System Problems N Ear or Hearing Problems N Hospitalizations N Learning Disorder N Skin Problems N Eating Disorder N MRSA exposure N Urinary Problems N Constipation N Brain Injury N Visual Hallucinations N AIDS/HIV N Tuberculosis N Back Problems N Asthma N GERD/Reflux N Hepatitis N Pulmonary Embolism N Chronic Ear Infections N Chicken Pox N Autism Spectrum Disorder (ASD) N Thrombophilias N Thyroid Disease N Breast Cancer N Lung Disease N Hypothyroidism N Defects or Inherited Disease N Developmental or Behavioral Disorders N Breast Problem N Difficulty Swallowing N [...] Anemia N Colon Polyps N Heart Attack (LA) N Ovarian Cancer N Diabetes N Bedwetting N Seizures/Epilepsy N Amnesia N Congestive Heart Failure (CHF) N Eczema N Abuse/Domestic Violence N Diverticulitis N Dementia N Cardiovascular N Tourette Syndrome N Pre-Eclampsia N Hypertension N Osteoporosis N Gynecological History Statement/Question Response [...] Time Meningococcal [id number] 9 completed Not Available [facility] 09/28/2019 02:39:14 Hep B, adolescent or pediatric 1 completed Eli Wiseman [facility] 06/20/2019 12:43:01 Hep B, adolescent or pediatric 2 [facility] 12:43:10 Hep B, adolescent or pediatric 3 [facility] 12:43:18 DTaP 2 [facility] 12:43:37 DTaP 2 [facility] 12:43:47 DTaP 2 completed Eli Wiseman null, [facility] 06/20/2019 12:43:57 DTaP 3 completed Eli Wiseman null, [facility] 06/20/2019 12:44:07 DTaP 7 completed Eli Wiseman null, [facility] 06/20/2019 12:44:17 DTaP 5 completed Eli Wiseman null, [facility] 06/20/2019 12:44:27 Hib, unspecified formulation 2 completed Eli Wiseman null, [facility] 06/20/2019 12:44:48 Hib, unspecified formulation 2 [facility] 12:44:57 Hib, unspecified formulation 3 completed Eli Wiseman null, [facility] 06/20/2019 12:45:06 IPV 2 completed Eli Wiseman null, [facility] 06/20/2019 12:46:25 IPV 2 completed Eli Wiseman null, [facility] 06/20/2019 12:46:35 IPV 2 completed [facility] 12:46:47 IPV 7 completed Eli Wiseman null, [facility] 06/20/2019 12:47:00 Pneumococcal conjugate PCV 13 2 completed Eli Wiseman null, [facility] 06/20/2019 12:47:15 Pneumococcal conjugate PCV 13 2 completed [facility] 12:47:26 Pneumococcal conjugate PCV 13 2 completed [facility] 12:47:37 Pneumococcal conjugate PCV 13 3 completed Eli Wiseman null, [facility] 06/20/2019 12:47:50 MMR 3 completed Eli Wiseman null, [facility] 06/20/2019 12:53:08 MMR 7 completed Eli Wiseman null, [facility] 06/20/2019 12:53:18 varicella 3 completed Eli Wiseman null, [facility] 06/20/2019 12:53:36 varicella 7 completed Eli Wiseman null, [facility] 06/20/2019 12:53:47 Hep A, pediatric, unspecified formulation 4 completed Eli Wiseman null, [facility] 06/20/2019 12:54:08 Hep A, pediatric, unspecified formulation 7 completed Eli Wiseman null, [facility] 06/20/2019 12:54:19 meningococcal ACWY, unspecified formulation 5 completed Eli Wiseman null, [facility] 06/20/2019 12:54:51 Hep B, unspecified formulation 2 completed Not Available [facility] 11:50:23 Tdap 5 completed Not Available [facility] 09/09/2025 11:50:23 COVID-19, mRNA, LNP-S, PF, 30 mcg/0.3 mL dose 1 completed Not Available [facility] 09/09/2025 11:50:23 Influenza, split virus, quadrivalent, preservative 1 completed Not Available [facility] 11:50:23 COVID-19, mRNA, LNP-S, PF, 30 mcg/0.3 mL dose 1 completed Not [facility] 09/09/2025 11:50:23 influenza, intradermal, quadrivalent, preservative free 2 completed Not Available [facility] 09/09/2025 11:50:23 Past Encounters Encounter ID Performer Location Encounter Start Date Encounter Closed Date Diagnosis/Indication Diagnosis SNOMED-CT Code Diagnosis ICD10 Code Diagnosis IMO Codes Diagnosis Note [id number] Margoth Andrews DO [address] [place] [address] 06/16/2025 15:58:02 06/17/2025 10:57:42 Neck pain 66341089 M54.2 20993 [id number] Margoth Andrews [facility] [address] [place] [address] 06/16/2025 16:37:49 06/16/2025 17:56:52 Neck pain 15670656 M54.2 [id number] Health Concerns Section Related Observation LastModified by Organization Detai ls LastModified Time None Recorded Concern Status LastModified by Organization Details LastModified Time None Recorded Payers Encounter Date Sequence Insurance Name Policy Number Policy Pinto Covered Member ID Pinto Member ID Guarantor Name 06/16/2025 1 [employer] Elsie Saldana [id number] Elsie Saldana OBGyn Episode No OBEpisode recorded.
--- OUTSIDE RECORDS SUMMARY | 2025-09-09 20:55 | XMS_ITS | Continuity of Care Document ---
Author Organization [facility] Address [address] [place] [address] Assessment No assessment recorded. Plan of Treatment Reminders Order Date Submit Date Provider Last Modified By Organization Details Last Modified Time Details Appointments Acute 20 025 11:40AM RICCI BAILEY NP Not available Not available Not available Lab None recorde d. Referral None recorde d. Procedures None recorde d. Surgeries None recorde d. Imaging None recorde d. Medication Orders None recorde d. Patient TargetsNo targets recorded. Patient InstructionsNo instructions recorded. Reason for Referral None Reported. Problems Name Problem SNOMED Code Status Onset Date Resolution Date Notes Provider Name and Address Organization Details Recorded Time Body mass index 20-24 - normal [id number] Active 024 RICCI BAILEY NP [address], [address] , [facility] 09/05/2024 13:18:21 Problem Notes None recorded. Procedures Surgical History Date Name Laterality Status Provider Name and Address Organization Details Recorded Time 03/08/20 21 venipuncture completed Kiley Kyle [facility] 03/08/2021 17:32:23 extraction of wisdom tooth completed Brigette Adler [facility] 09/05/2024 11:07:12 Imaging Results None recorded. Procedure [...] by oral route. 11/05 completed gets through PCA Audit Not Available Not Available Not Available cyclobenz [...] pine ER 300 mg capsule,e xtended release [id number] r Take 1 capsule every 12 hours [...] Tobacco Smoking Status Never Smoker Violet Fiore [facility] 06/19/2019 17:19:40 Do You Have An Advance Directive? No Information not available 09/05/2024 Animal Exposure? Yes [email or web address] Informat ion not available 06/19/2019 Do You Wear A Helmet When Biking? No Information not available 09/05/2024 Are You Blind Or Do You Have Difficulty Seeing? No Information not available 04/16/2021 Is Blood Transfusion Acceptable In An Emergency? Yes Information not available 09/05/2024 What Is Your Level Of Caffeine Consumption? Moderate [email or web address] Information not available 06/19/2019 How Much Tobacco Do You Chew? None [email or web address] Information not available 06/19/2019 Concerns About Meeting Basic Needs (food, Housing, Heat, Etc)? No Information not available 06/19/2019 In The 14 Days Before Symptom Onset, Have You Had Close Contact [facility] While That Case Was Ill? No [...] Type Of Diet Are You Following? REGULAR [email or web address] Information not available 06/19/2019 Does Family Ever Have Difficulty Making Ends Meet At The End Of The Month? No [email or web address] Information not available 06/19/2019 Which Illicit Or Recreational Drugs Have You Used? None [email or web address] Information not available 06/19/2019 Have You Processed Blood Or Body Fluids From An Ebola Virus Disease Patient Without Appropriate PPE? No Information not available 04/16/2021 What Is The Highest Grade Or Level Of School You Have Completed Or The Highest Degree You Have Received? [id number] Information not available 09/05/2024 How Many Days Of Moderate To Strenuous Exercise, Like A Brisk Walk, Did You Do In The Last 7 Days? 0 Information not available 09/05/2024 Have There Been Any Changes To Your Family Or Social Situation? No [email or web address] Information not available 06/19/2019 What Is The Fluoride Status Of Your Home? Non-fluoridated [email or web address] Information not available 06/19/2019 Are There Any Guns Present In Your Home? Yes [email or web address] Information not available 06/19/2019 What Is Your Home Situation? Mother [email or web address] Information not available 06/19/2019 How Many Years [...] Information not available 09/05/2024 Have You Had Detention Dialysis? No Information not available 09/05/2024 Have [...] not available 09/05/2024 Medication List Reconciled Yes [email or web address] Information not available 06/15/2020 Most Recent Dental Visit 08/28/2025 Information not available 09/09/2025 Sexual Orientation Straight Or Heterosexual [email or web address] Information not available 06/19/2019 Gender Identity Female [email or web address] Informati on not available 06/19/2019 Eye Exam 03/05/2025 Information not available 09/09/2025 Do You Feel Safe Yes [email or web address] Informat ion not available 06/19/2019 Do You Feel Physically And Emotionally Safe Where You Currently Live? Yes [email or web address] Information not available 06/19/2019 Mosquito Repellent Used Routinely Yes [email or web address] Information not available 06/19/2019 What Was The Date Of Your Most Recent Tobacco Screening? 09/09/2025 Information not available 09/09/2025 Family Has Moved Frequently/lived With Others Due To Finances Within The Last Year? No [email or web address] Information not available 06/19/2019 How Many Children Do You Have? 0 Information not available 09/05/2024 Are There Any Occupational Health Risks Where You Work? Yes Information not available 09/05/2024 What Is Your Parents' Marital Status? [email or web address] Information not available 06/19/2019 Pool Exposure No [email or web address] Information not available 06/19/2019 What Is Your Relationship Status? Single Information not available 09/05/2024 Do You Use Your Seat Belt Or Car Seat Routinely? Yes [email or web address] Information not available 06/19/2019 Are You Sexually Active? Yes Information not available 09/05/2024 Do You Have Any Siblings? 3 [email or web address] Information not available 06/19/2019 Do You Have Smoke And Carbon Monoxide Detectors In Your Home? Yes [email or web address] Information not available 06/19/2019 Are You Passively Exposed To Smoke? Yes [email or web address] Information not available 06/19/2019 How Much Tobacco Do You Smoke? No [email or web address] Information not available 06/19/2019 What Types Of Sporting Activities Do You Participate In? 0 Information not available 09/05/2024 Do You Use Sunscreen Routinely? Yes Information not available 06/19/2019 Do You Have [...] used smokeless tobacco? Never used smokeless tobacco [email or web address] Information not available 06/19/2019 Are you currently employed? Yes Information not available 09/05/2024 Do you have transportation difficulties? No Information not available 09/05/2024 Are you able to care for yourself independently? Yes [email or web address] Information not available 12/13/2021 Do you have difficulty dressing, bathing, grooming, or toileting? No Information not available 04/16/2021 Do you or have you ever used e-cigarettes or vape? Never used electronic cigarettes [email or web address] Information not available 06/19/2019 What is your exercise level? Occasional Information not available 09/05/2024 Do you use any illicit or recreational drugs? No Information not available 04/16/2021 Do you or have you ever used any other forms of tobacco or nicotine? No Information not available 04/16/2021 What is your level of alcohol consumption? None [email or web address] Information not available 06/19/2019 Are you able [...] anxious, or unable to sleep at night)? [id number] Information not available 09/05/2024 Do you have difficulty concentrating, remembering or making decisions? No Information no t available 04/16/2021 Are you or have you been involved with bullying? No [email or web address] Information not available 06/19/2019 Family History Relationship Description Onset Age of this Age Resolved Age Notes LastModified by Organization Details LastModified Time Father No current problems or disability [email or web address] Not available 06/19 17:19:31 Mother No current problems or disability [email or web address] Not available 06/19 17:19:31 Notes:No changes 09-09-25 bert Smith Medical History Condition Response Other N Gout N Kidney Stones N Blood Diseases N Hyperthyroidism N Blood Transfusion N COPD N Depression N Incontinence N Edema N Endocrine Disorders N Anxiety Disorder N Muscle, Joint, or Bone Problems N Obesity N Vision or Eye Problems Y Arthritis N Auditory Hallucinations N Infertility N Cancer N Stroke N Varicosities N Headaches N Fibromyalgia N Kidney Disease N Abnormal Bleeding N [...] N Thyroid Disease N Breast Cancer N Hypothyroidism N Lung Disease N Developmental or Behavioral Disorders N Defects or Inherited Disease N Breast Problem N Difficulty Swallowing N Anesthesia Complications N Deep Vein Thrombosis N Meniere's disease N Hearing Loss N Head Injury/Concussion N Congenital Anomalies N Abnormal Pap Smear N Endometriosis N Bladder or Kidney Problems N High Cholesterol N Nervous System Disorder N Liver Disease N Psychiatric/Mental Health Condition N Schizophrenia N Allergies/Hayfever N Parkinson's Disease N GI Problems N ADD/ADHD N Anemia N Colon Polyps N Heart Attack (MT) N Diabetes N Ovarian Cancer N Bedwetting N Seizures/Epilepsy N Amnesia N Congestive Heart Failure (CHF) N Eczema N Dementia N Diverticulitis N Abuse/Domestic Violence N Cardiovascular N Tourette Syndrome N Pre-Eclampsia [...] Time Meningococcal MCV4O 9 completed Not Available [facility] 02:39:14 Hep B, adolescent or pediatric 1 completed Eli Wiseman [facility] 06/20/2019 12:43:01 Hep B, adolescent or pediatric 2 completed Eli Wiseman [facility] 06/20/2019 12:43:10 Hep B, adolescent or pediatric 3 completed Eli Wiseman [facility] 06/20/2019 12:43:18 DTaP 2 completed Eli Wiseman [facility] 06/20/2019 12:43:37 DTaP 2 completed lEi Wiseman [facility] 06/20/2019 12:43:47 [facility] 12:43:57 [facility] 12:44:07 DTaP 7 [facility] 12:44:17 DTaP 5 completed Eli Wiseman null, [facility] 06/20/2019 12:44:27 Hib, unspecified formulation 2 [facility] 12:44:48 Hib, unspecified formulation 2 completed Eli Wiseman null, [facility] 06/20/2019 12:44:57 Hib, unspecified formulation 3 completed Eli Wiseman null, [facility] 06/20/2019 12:45:06 IPV 2 [facility] 12:46:25 IPV 2 completed Eli Wiseman [facility] 06/20/2019 12:46:35 IPV 2 completed Eli Wiseman null, [facility] 06/20/2019 12:46:47 IPV 7 [facility] 12:47:00 Pneumococcal conjugate PCV 13 2 completed Eli Wiseman [facility] 06/20/2019 12:47:15 Pneumococcal conjugate PCV 13 2 [facility] 12:47:26 Pneumococcal conjugate PCV 13 2 [facility] 12:47:37 Pneumococcal conjugate PCV 13 3 completed Eli Wiseman null, [facility] 06/20/2019 12:47:50 MMR 3 [facility] 12:53:08 MMR 7 completed Eli Wiseman null, [facility] 06/20/2019 12:53:18 varicella 3 completed Eli Wiseman null, [facility] 06/20/2019 12:53:36 varicella 7 completed Eli Wiseman domo, [facility] 06/20/2019 12:53:47 Hep A, pediatric, unspecified formulation 4 completed Eli Wiseman null, [facility] 06/20/2019 12:54:08 Hep A, pediatric, unspecified formulation 7 completed Eli Wiseman domo, [facility] 06/20/2019 12:54:19 meningococcal ACWY, unspecified formulation 5 completed Eli Wiseman domo, [facility] 06/20/2019 12:54:51 Hep B, unspecified formulation 2 completed Not Available [facility] 09/09/2025 11:50:23 Tdap 5 completed Not Available [facility] 09/09/2025 11:50:23 COVID-19, mRNA, LNP-S, PF, 30 mcg/0.3 mL dose 1 completed Not Available [facility] 09/09/2025 11:50:23 Influenza, split virus, quadrivalent, preservative 1 completed Not Available [facility] 09/09/2025 11:50:23 COVID-19, mRNA, LNP-S, PF, 30 mcg/0.3 mL dose 1 completed Not Available [facility] 09/09/2025 11:50:23 influenza, intradermal, quadrivalent, preservative free 2 completed Not Available [facility] 09/09/2025 11:50:23 Past Encounters Encounter ID Performer Location Encounter Start Date Encounter Closed Date Diagnosis/Indication Diagnosis SNOMED-CT Code Diagnosis ICD10 Code Diagnosis IMO Codes Diagnosis Note [id number] Margoth Andrews DO [address] [address] 06/16/2025 15:58:02 06/17/2025 10:57:42 Neck pain 62431074 M54.2 [id number] Margoth Andrews DO [address] [address] 06/16/2025 16:37:49 06/16/2025 17:56:52 Neck pain 36265581 M54.2 [id number] Health Concerns Section Related Observation LastModified by Organization Detai ls LastModified Time None Recorded Concern Status LastModified by Organization Details LastModified Time None Recorded Payers Encounter Date Sequence Insurance Name Policy Number Policy Pinto Covered Member ID Pinto Member ID Guarantor Name 06/16/2025 1 [employer] Elsie Saldana [id number] Elsie Saldana OBGyn Episode No OBEpisode recorded.
[2025-09-09 20:59] VITALS: BP 131/89; PULSE 112; RESP 18; TEMP 36.9; O2SAT 98
[2025-09-09 21:08] LABS: Hematocrit 34.2 % (36-47); Hemoglobin 11.00 g/dL (11.27-16.99); Mean Corpuscular HGB Conc 32.2 g/dL (30-55); Mean Corpuscular Hemoglobin 28.6 pg (27-33); Mean Corpuscular Volume 89.1 fl (85-98); Nucleated Red Blood Cells % 0 %; Platelet Count 350 10^3/cmm (157-399); Red Blood Count 3.84 10^6/uL (3.85-5.65); White Blood Count 12.93 10^3/uL (3.29-11.43)
--- NOTE | 2025-09-09 21:24 | ED_ITS ---
HPI - 2 General: Chief complaint: Vaginal Bleeding Stated complaint: 7 Wks possible miscarriage Time Seen by Provider: 09/09/25 20:49 History of Present Illness: Patient is a 25-year-old female without medical issues that reports to the emergency room due to vaginal bleeding after finding out she was . Last menstrual period: 07/21/2025 TOÑO: 04/27/2026 1 Context: Patient found out she was on 09/02, after menstrual period was late. Since her spotting that was light and off and on since 09/02, she did not think much of it until today. She had a mild amount of bleeding this morning with associated cramping, and moderate amount this afternoon with associated cramping. She has a pad on at this time. No intercourse since finding out she was . No heavy lifting. Symptoms of : Tender breast. No nausea or vomiting. Date of Last Menstrual Period: 07/21/25 Associated symptoms: Reports vaginal discharge; Deny abdominal pain, headache(s), nausea or vomiting Related Data : 1 Previous Rx's ?Medication ?Instructions ?Recorded cyclobenzaprine 10 mg tablet 10 mg PO Q8H PRN muscle s pasm #20 09/18/24 tabs diclofenac sodium 50 mg 50 mg PO BID PRN pain #14 ta bs 09/18/24 tablet,delayed release Allergies Allergy/AdvReac Type Severity Reaction Status Date / Time No Known Allergies Allergy Verified 09/23/24 18:04 Review of Systems 2 General: Reports: 10 or more systems reviewed and unremarkable except in HPI and below Const: Denies: fever(s) or chills ENMT: Denies: throat pain or mouth pain Card: Denies: chest pain, palpitations or swelling of feet/ankles Resp: Denies: dyspnea or productive cough GI: Denies: abdominal pain, nausea, vomiting or diarrhea : Reports: vaginal discharge; Denies: flank pain or difficulty voiding Musc: Denies: neck pain, back pain, extremity pain, extremity swelling, joint pain, joint swelling, joint redness, joint warmth, limited range of motion or muscle weakness Skin/Breast: Denies: rash or pruritus Neuro: Denies: headache(s), numbness in extremities or weakness in extremities Psych: Denies: anxiety or depression PFSH ED 2 PFSH: Social History Smoking and tobacco/nicotine status: never used tobacco/nicotine Alcohol intake: never Female Reproductive History: Date of last menstrual period: 07/21/25 G ravida: 1 Physical Exam 2 Const: COMMON NORMALS: no acute distress, patient oriented x3, no limitations, healthy appearing, alert and well nourished HENMT: COMMON NORMALS: normocephalic, atraumatic, moist oral mucous membranes and oropharynx normal HEAD & SCALP: normocephalic and atraumatic Neck/C-Spine: COMMON NORMALS: full ROM, no lymphadenopathy, supple, no meningeal signs and Thyroid normal GENERAL: Yes normal visual inspection T HYROID: Thyroid normal Resp: COMMON NORMALS: normal respiratory effort, No use of accessory muscles and clear to auscultation bilaterally AUSCULTATION: clear to auscultation bilaterally Cardio: COMMON NORMALS: regular rate and regular rhythm RATE: regular rate RHYTHM: regular rhythm Back/Pelvis: COMMON NORMALS: no thoracic nor lumbar tenderness and thoraco- lumbar ROM normal Extremity: COMMON NORMALS: normal to inspection, full ROM, capillary refill normal, no joint enlargement and no clubbing, cyanosis or edema Neuro: COMMON NORMALS: patient oriented x3, moves all extremities, no focal motor deficits and no sensory deficits noted SENSORIUM/ORIENTATION: Yes alert MENINGEAL SIGNS: Yes no meningeal signs Skin: COMMON NORMALS: no rashes or lesions noted GENERAL SKIN EXAM: no rashes or lesions noted Course 2 Vital Signs: Vital signs: Vital Signs Temperature 98.5 F 09/09/25 20:59 Pulse Rate 112 H 09/09/25 20:59 Respiratory Rate 18 09/09/25 20:59 Blood Pressure 131/89 09/09/25 20:59 Pulse Oximetry 98 09/09/25 20:59 Oxygen Delivery Me thod Room Air 09/09/25 20:59 MDM - OB/Uterine Contractions Medical Decision Making 25-year-old female 1, with certain miscarriage with her level at 99. I ordered a transvaginal ultrasound to rule out any additional pathology given her cramping. Patient has this information regarding her labs, and we discussed obtaining vaginal ultrasound. She wants to hold off at this time. She is not in any pain or danger at this time. She will return to the ED if she has further issues. She will repeat her hCG level tomorrow Patient's heart rate reevaluated and 85. I suspect triage 112 was secondary to anxiety. Patient states she will increase her fluid intake Medical Records I reviewed the patient's medical records. Lab Data I reviewed the patient's lab results. 09/09/25 20:50 09/09/25 20:50 Laboratory Results WBC 12.93 10^3/uL (3.29-11.43) H 09/09/25 20:50 RBC 3.84 10^6/uL (3.85-5.65) L 09/09/25 20:50 Hgb 11.00 g/dL (11.27-16.99) L 09/09/25 20:50 Hct 34.2 % (36-47) L 09/09/25 20:50 MCV 89.1 fl (85-98) 09/09/25 20:50 MCH 28.6 pg (27-33) 09/09/25 20:50 MCHC 32.2 g/dL (30-55) 09/09/25 20:50 RDW 12.1 % (12.1-15.1) 09/09/25 20:50 Plt Count 350 10^3/cmm (157-399) 09/09/25 20:50 MPV 9.4 fL (7.4-10.4) 09/09/25 20:50 Neut % (Auto) 69.9 % 09/09/25 20:50 Lymph % (Auto) 23.1 % 09/09/25 20:50 Calloway % (Auto) 5.8 % 09/09/25 20:50 Eos % (Auto) 0.6 % 09/09/25 20:50 Baso % (Auto) 0.3 % 09/09/25 20:50 Neut # (Auto) 9.03 10^3/uL (1.8-7.7) H 09/09/25 20:50 Lymph # (Auto) 3.0 10^3/uL (0.8-4.8) 09/09/25 20:50 Calloway # (Auto) 0.8 10^3/uL (0.2-0.9) 09/09/25 20:50 Eos # (Auto) 0.1 10^3/uL (0.0-0.8) 09/09/25 20:50 Baso # (Auto) 0.0 10^3/uL (0.0-0.1) 09/09/25 20:50 Nucleated RBC % (auto) 0 % 09/09/25 20:50 Nucleated RBCs # 0.0 /100WBC 09/09/25 20:50 Sodium 140 mmol/L (136-145) 09/09/25 20:50 Potassium 3.7 mmol/L (3.5-5.1) 09/09/25 20:50 Chloride 101 mmol/L (98-107) 09/09/25 20:50 Carbon Dioxide 27 mmol/L (22-29) 09/09/25 20:50 Anion Gap 15.7 (5-19) 09/09/25 20:50 BUN 13 mg/dL (6-20) 09/09/25 20:50 Creatinine 0.6 mg/dL (0.5-0.9) 09/09/25 20:50 GFR Calculation 122.8 mL/min (90-130) 09/09/25 20:50 Glucose 110 mg/dL (65-115) 09/09/25 20:50 Calculated Osmolality 291 mOsm/kg (285-295) 09/09/25 20:50 Calcium 9.5 mg/dL (8.5-10.5) 09/09/25 20:50 Ser , Semi-Qnt 99.39 mIU/mL 09/09/25 20:50 Urine Color Campbell (Yellow) A 09/09/25 21: Urine Appearance Cloudy (CLEAR) A 09/09/25 21: Urine pH 7.5 (5-7) 09/09/25 21:05 Ur Specific Elwood 1.013 (1.005-1.030) 09/09/25 21:05 Urine Protein Trace (Negative) A 09/09/25 21: Urine Glucose (UA) Negative (Normal) 09/09/25 21: Urine Ketones Negative (Negative) 09/09/25 21: Urine Blood 3+ (Negative) A 09/09/25 21: Urine Nitrate Negative (Negative) 09/09/25 21: Urine Bilirubin Negative (Negative) 09/09/25 21: Urine Urobilinogen 0.2 mg/dL (Negative) 09/09/25 21:05 Ur Leukocyte Esterase Trace (Negative) A 09/09/25 21:05 Urine RBC >100 /hpf (0-2) H 09/09/25 21:05 Urine WBC 0-5 /hpf (0-5) 09/09/25 21:05 Ur Squamous Epith Cells 0-5 /hpf (0-5) 09/09/25 21:05 Amorphous Sediment Not Reportable 09/09/25 21:05 Urine Bacteria None seen /hpf (NONE) 09/09/25 21:05 Hyaline Casts 0-4 /lpf H 09/09/25 21:05 Blood Type A Positive 09/09/25 20:50 Rho(D) Type Rh positive 09/09/25 20:50 Antibody Screen Negative 09/09/25 20:50 No radiology studies performed this visit ED provider radiology interpretation(s): Declined transvaginal Discharge Plan Discharge Patient Disposition: Home Clinical Impression: Incomplete Condition: Stable Prescriptions: No Action cyclobenzaprine 10 mg tablet 10 mg PO Q8H PRN (Reason: muscle spasm) Qty: 20 0RF diclofenac sodium 50 mg tablet,delayed release (DR/EC) 50 mg PO BID PRN (Reason: pain) Qty: 14 0RF Discharge Orders: Discharge ED (Routine); Ordered 09/09/25 Ordered By: Melissa Dockery Referrals: Anne Marie Alejandro FNP-BC [Primary Care Provider, Family Practice] Discharge Diet: Usual diet Discharge Activity: Resume usual activity Patient Instructions: Miscarriage (ED), Patient Portal & Yves Instructions Activity Restrictions/Additional Instructions: - Please return to the ED if you need further help - We discussed: Obtain an hCG level tomorrow - Increase your fluid intake Thank you for choosing [facility] for your healthcare needs today. You have been screened and evaluated and felt safe for discharge. Health conditions do change or evolve sometimes and as such it is important that you follow up with your Primary Doctor to be re checked, 3-5 days is a general good time frame for follow up. You are always welcome to return to the ED for re assessment if your symptoms are worsening or you have new concerns Print Language: Mauritian Coding Level of Care Code ED Secondary Education Professor for Elisabeth Rea
[2025-09-09 21:39] LABS: Glucose Urine UA Negative (Normal); Nitrate Urine Negative (Negative); Specific Gravity, Urine 1.013 (1.005-1.030)
[2025-09-09 21:41] LABS: Add Urine Microscopic? YES
[2025-09-09 21:46] LABS: Anion Gap 15.7 (5-19); Blood Urea Nitrogen 13 mg/dL (6-20); Calcium 9.5 mg/dL (8.5-10.5); Carbon Dioxide 27 mmol/L (22-29); Chloride 101 mmol/L (98-107); Glucose 110 mg/dL (65-115); Osmolality Calculated 291 mOsm/kg (285-295); Potassium 3.7 mmol/L (3.5-5.1); Sodium 140 mmol/L (136-145)
== END 2025-09-09 22:49 | disposition home or self-care (01) ==
PROVIDERS: Emergency Medicine; Emergency Provider Physician Assistant; PCP Nurse Practitioner Family
DX: O03.4 Incomplete spontaneous abortion without complication (principal)
CPT/HCPCS: 36415; 80048; 81001; 84702; 85025; 86850; 86900; 87086; 99283